=== PATIENT | male | born 1940 | race African-American/Black ===

== ENCOUNTER 2016-02-11 10:51 | Emergency (ER) | payer BC, MEDICARE ==
[~2016-02-11] VITALS: Ht 180.3 cm; Wt 100.0 kg
[~2016-02-11 10:51] MED LIST: COZA25TA PO; GABA100C4 PO; TAMS5CAP PO
[2016-02-11 10:52] VITALS: BP 233/107; PULSE 88; RESP 14; TEMP 97.7; O2SAT 98
[2016-02-11 11:13] VITALS: BP_SYST 192; BP_SYST 242; BP_DIAS 109; BP_DIAS 73
[2016-02-11 11:38] VITALS: O2SAT 97
--- NOTE | 2016-02-11 11:40 | PD ---
HPI Chief Complaint: Hypertension Time Seen by Provider: 11:37 Travel History International Travel<30 days: No Contact w/Intl Traveler<30days: No Traveled to known affect area: No History of Present Illness HPI This 75-year-old male presents to the emergency department for evaluation of elevated blood pressure. Patient was discharged 3 days ago from the Hospital after being admitted for hypertensive urgency. He was registered on a Cardene drip. The cardiac drip was weaned off and the patient was discharged home with increase of his losartan 50 mg daily to 75 mg daily. He states his blood pressure when he woke up this morning was 133/94. He then took his losartan his blood pressure has been climbing since. The patient states he felt slightly dizzy this morning, but denies any headache, chest pain, shortness breath, abdominal pain, vomiting. He states other than having his blood pressure elevated, he feels fine. Patient states he takes losartan and gabapentin at home. PFSH Past Medical History Arthritis: Yes Heart Rhythm Problems: No Cancer: No Cardiovascular Problems: Yes High Cholesterol: No Chest Pain: Yes Congestive Heart Failure: Yes Diminished Hearing: Yes (RIGHT) Endocrine: No Gastrointestinal Disorders: Yes GERD: Yes Genitourinary: Yes Hiatal Hernia: No Hypertension: Yes Immune Disorder: No Musculoskeletal: Yes Neurologic: No Psychiatric: No Reproductive: No Respiratory: No Immunizations Current: Yes Ulcer: No Past Surgical History Abdominal Surgery: No Cardiac Surgery: No Ear Surgery: No Endocrine Surgery: No Eye Surgery: No Genitourinary Surgery: No Gynecologic Surgery: No Neurologic Surgery: Yes (CYST ON POSTERIOR NECK REMOVED) Oral Surgery: No Thoracic Surgery: No Other Surgery: Yes (PROSTATE BIOPSY) Social History Alcohol Use: No Tobacco Use: No Substance Use: No Allergies-Medications (Allergen,Severity, Reaction): Coded Allergies: No Known Allergies (Verified , 02/11/16) Reported Meds & Prescriptions Reported Meds & Active Scripts Active Cozaar (Losartan Potassium) 25 Mg Tab 75 Mg PO DAILY Reported Flomax (Tamsulosin HCl) 0.4 Mg Cap 0.4 Mg PO HS Gabapentin 100 Mg Cap 100 Mg PO TID Review of Systems Except as stated in HPI: all other systems reviewed are Neg Physical Exam Narrative GENERAL: Well-developed well-nourished male patient, ambulatory. Afebrile. SKIN: Warm and dry. HEAD: Normocephalic. Atraumatic. EYES: No scleral icterus. No injection or drainage. NECK: Supple, trachea midline. No JVD or lymphadenopathy. CARDIOVASCULAR: Regular rate and rhythm without murmurs, gallops, or rubs. RESPIRATORY: Breath sounds equal bilaterally. No accessory muscle use. Lungs sounds clear to auscultation. GASTROINTESTINAL: Abdomen soft, non-tender, nondistended. MUSCULOSKELETAL: No cyanosis, or edema. Bilateral upper and lower extremity strength 5/5. All extremities are neurovascularly intact. BACK: Nontender without obvious deformity. No CVA tenderness. Data Data Last Documented VS Vital Signs Date Time Temp Pulse Resp B/P Pulse Ox O2 Delivery O2 Flow Rate FiO2 02/11/16 12:13 97 Room Air 02/11/16 11:13 242/109 192/73 02/11/16 11:07 75 18 02/11/16 10:52 97.7 Orders Electrocardiogram (02/11/16 ) Bilateral Bp Monitoring (02/11/16 11:12) Basic Metabolic Panel (Bmp) (02/11/16 11:35) Ckmb (Isoenzyme) Profile (02/11/16 11:35) Complete Blood Count With Diff (02/11/16 11:35) Magnesium (Mg) (02/11/16 11:35) Troponin I (02/11/16 11:35) Ecg Monitoring (02/11/16 11:35) Bilateral Bp Monitoring (02/11/16 11:35) Iv Access Insert/Monitor (02/11/16 11:35) Oximetry (02/11/16 11:35) Oxygen Administration (02/11/16 11:35) Sodium Chloride 0.9% Flush (Ns Flush) (02/11/16 11:45) Hydralazine Inj (Apresoline Inj) (02/11/16 11:45) Labs Laboratory Tests Test 02/11/16 02/11/16 11:40 12:35 White Blood Count 3.4 TH/MM3 Red Blood Count 4.54 MIL/MM3 Hemoglobin 12.7 GM/DL Hematocrit 38.5 % Mean Corpuscular Volume 84.9 FL Mean Corpuscular Hemoglobin 27.9 PG Mean Corpuscular Hemoglobin 32.9 % Concent Red Cell Distribution Width 15.6 % Platelet Count 147 TH/MM3 Mean Platelet Volume 8.1 FL Neutrophils (%) (Auto) 19.0 % Lymphocytes (%) (Auto) 61.5 % Monocytes (%) (Auto) 15.6 % Eosinophils (%) (Auto) 3.4 % Basophils (%) (Auto) 0.5 % Neutrophils # (Auto) 0.6 TH/MM3 Lymphocytes # (Auto) 2.1 TH/MM3 Monocytes # (Auto) 0.5 TH/MM3 Eosinophils # (Auto) 0.1 TH/MM3 Basophils # (Auto) 0.0 TH/MM3 CBC Comment AUTO DIFF Differential Total Cells 100 Counted Neutrophils % (Manual) 20 % Lymphocytes % 60 % Monocytes % 14 % Eosinophils % 6 % Neutrophils # (Manual) 0.7 TH/MM3 Differential Comment FINAL DIFF MANUAL Platelet Estimate NORMAL Platelet Morphology Comment NORMAL Red Cell Morphology Comment NORMAL Sodium Level 139 MEQ/L Potassium Level 4.0 MEQ/L Chloride Level 107 MEQ/L Carbon Dioxide Level 24.8 MEQ/L Anion Gap 7 MEQ/L Blood Urea Nitrogen 16 MG/DL Creatinine 1.19 MG/DL Estimat Glomerular Filtration 72 ML/MIN Rate Random Glucose 90 MG/DL Calcium Level 8.6 MG/DL Magnesium Level 2.0 MG/DL Total Creatine Kinase 99 U/L Troponin I LESS THAN 0.02 NG/ML MDM Medical Decision Making Medical Screen Exam Complete: Yes Emergency Medical Condition: Yes Medical Record Reviewed: Yes Differential Diagnosis hypertension urgency vs. hypertensive emergency vs. ACS Narrative Course 75-year-old male presents to the emergency department for evaluation of elevated blood pressure. Patient was discharged 3 days ago from the emergency department. Other than high blood pressure, he states he feels fine. CBC, BMP , CK, troponin, magnesium were ordered and pending. EKG shows sinus rhythm, heart rate 83 and looks unchanged since previous EKG. This was read by my attending physician, Dr. Hurt. CBC shows slightly leukopenic and 3.4, which appears chronic for patient. BMP shows no acute abnormalities. CK is 99. Troponin is less than 0.02. Magnesium is 2.0. Patient is instructed to follow up with his primary care physician. He is instructed to return for any acute worsening of symptoms including severe headache, shortness of breath, chest pain or any other emergent condition. Patient is agreeable. Patient is continue increased dose of losartan. Diagnosis Primary Impression: Hypertension Qualified Code: I10 - Essential hypertension Referrals: Primary Care Physician call for appointment Patient Instructions: Chronic Hypertension (ED), General Instructions Additional Instructions: Continue increased dose of Losartan and follow up with your primary care provider. Return to the emergency department for any acute, worsening of symptoms. Med/Other Pt SpecificInfo: No Change to Meds Disposition: 01 DISCHARGE HOME Condition: Stable Kendra Walker Feb 11, 2016 11:40
[2016-02-11] MEDS ORDERED: hydrALAZINE HCL 20 MG/ML VIAL IV PUSH ONE (11:45)
[2016-02-11] MEDS ORDERED: SODIUM CHLORIDE 0.9% FLUSH 5 ML FLUSH IVF PRN (11:45)
[2016-02-11 12:17] LABS: AUTOMATED NEUTROPHIL # 0.6 TH/MM3 (1.8-7.7); BASOPHIL % 0.5 % (0.0-2.0); EOSINOPHIL # 0.1 TH/MM3 (0-0.4); EOSINOPHIL % 3.4 % (0.0-4.0); HEMATOCRIT 38.5 % (39.0-51.0); LYMPH % 61.5 % (9.0-44.0); LYMPHOCYTE # 2.1 TH/MM3 (1.0-4.8); MEAN CELL VOLUME 84.9 FL (80.0-100.0); MEAN CORPUSCULAR HEMOGLOBIN 27.9 PG (27.0-34.0); MEAN CORPUSCULAR HGB CONC 32.9 % (32.0-36.0); MONO % 15.6 % (0.0-8.0); PLATELET COUNT 147 TH/MM3 (150-450); RED BLOOD COUNT 4.54 MIL/MM3 (4.50-5.90); RED CELL DISTRIBUTION WIDTH 15.6 % (11.6-17.2); WHITE BLOOD COUNT 3.4 TH/MM3 (4.0-11.0)
[2016-02-11 12:18] LABS: HEMO FLAGS AUTO DIFF
[2016-02-11 13:01] LABS: EOSINOPHILS 6 % (0-4); NEUTROPHIL # MANUAL DIFF 0.7 TH/MM3 (1.8-7.7); PLATELET ESTIMATE SMEAR NORMAL (NORMAL); PLATELET MORPHOLOGY NORMAL (NORMAL); POLYS (SEG NEUTROPHILS) 20 % (16-70); WBC DIFF SAMPLE 100
[2016-02-11 13:02] LABS: SCAN/DIFF FINAL DIFF MANUAL
[2016-02-11 13:08] LABS: ANION GAP 7 MEQ/L (5-15); BICARBONATE 24.8 MEQ/L (21.0-32.0); BLOOD UREA NITROGEN 16 MG/DL (7-18); CHLORIDE 107 MEQ/L (98-107); GLOMERULAR FILTRATION RATE 72 ML/MIN (>89); SODIUM (NA) 139 MEQ/L (136-145)
[2016-02-11 13:23] LABS: CREATINE KINASE 99 U/L (39-308)
[2016-02-11 13:29] VITALS: BP 168/76; PULSE 86; RESP 18; TEMP 97.7; O2SAT 98
--- NOTE | 2016-02-11 13:31 | PD ---
Data Data Last Documented VS Vital Signs Date Time Temp Pulse Resp B/P Pulse Ox O2 Delivery O2 Flow Rate FiO2 02/11/16 12:13 97 Room Air 02/11/16 11:13 242/109 192/73 02/11/16 11:07 75 18 02/11/16 10:52 97.7 Orders Electrocardiogram (02/11/16 ) Bilateral Bp Monitoring (02/11/16 11:12) Basic Metabolic Panel (Bmp) (02/11/16 11:35) Ckmb (Isoenzyme) Profile (02/11/16 11:35) Complete Blood Count With Diff (02/11/16 11:35) Magnesium (Mg) (02/11/16 11:35) Troponin I (02/11/16 11:35) Ecg Monitoring (02/11/16 11:35) Bilateral Bp Monitoring (02/11/16 11:35) Iv Access Insert/Monitor (02/11/16 11:35) Oximetry (02/11/16 11:35) Oxygen Administration (02/11/16 11:35) Sodium Chloride 0.9% Flush (Ns Flush) (02/11/16 11:45) Hydralazine Inj (Apresoline Inj) (02/11/16 11:45) Labs Laboratory Tests Test 02/11/16 02/11/16 11:40 12:35 White Blood Count 3.4 TH/MM3 Red Blood Count 4.54 MIL/MM3 Hemoglobin 12.7 GM/DL Hematocrit 38.5 % Mean Corpuscular Volume 84.9 FL Mean Corpuscular Hemoglobin 27.9 PG Mean Corpuscular Hemoglobin 32.9 % Concent Red Cell Distribution Width 15.6 % Platelet Count 147 TH/MM3 Mean Platelet Volume 8.1 FL Neutrophils (%) (Auto) 19.0 % Lymphocytes (%) (Auto) 61.5 % Monocytes (%) (Auto) 15.6 % Eosinophils (%) (Auto) 3.4 % Basophils (%) (Auto) 0.5 % Neutrophils # (Auto) 0.6 TH/MM3 Lymphocytes # (Auto) 2.1 TH/MM3 Monocytes # (Auto) 0.5 TH/MM3 Eosinophils # (Auto) 0.1 TH/MM3 Basophils # (Auto) 0.0 TH/MM3 CBC Comment AUTO DIFF Differential Total Cells 100 Counted Neutrophils % (Manual) 20 % Lymphocytes % 60 % Monocytes % 14 % Eosinophils % 6 % Neutrophils # (Manual) 0.7 TH/MM3 Differential Comment FINAL DIFF MANUAL Platelet Estimate NORMAL Platelet Morphology Comment NORMAL Red Cell Morphology Comment NORMAL Sodium Level 139 MEQ/L Potassium Level 4.0 MEQ/L Chloride Level 107 MEQ/L Carbon Dioxide Level 24.8 MEQ/L Anion Gap 7 MEQ/L Blood Urea Nitrogen 16 MG/DL Creatinine 1.19 MG/DL Estimat Glomerular Filtration 72 ML/MIN Rate Random Glucose 90 MG/DL Calcium Level 8.6 MG/DL Magnesium Level 2.0 MG/DL Total Creatine Kinase 99 U/L Troponin I LESS THAN 0.02 NG/ML MDM Supervised Visit with [facility]: Yes Narrative Course The history, exam, and medical decision-making in the associated mid-level provider note were completed with my assistance. I reviewed and agree with the findings presented. I attest that I had a [id number] encounter with the patient on the same day, and personally performed and documented my assessment and findings in the medical record. *My assessment and Findings: 75-year-old man who presents emergent department concerned about ongoing elevated blood pressure. Looks well. No evidence of ischemia. Recommend continue new increased dose of losartan his previously recommended, outpatient follow-up. Diagnosis Primary Impression: Hypertension Hipolito Hurt MD Feb 11, 2016 13:31
--- NOTE | 2016-02-11 18:26 | EKG ---
Date Performed: 02/11/2016 Time Performed: 11:11:18 PTAGE: 75 years EKG: Sinus rhythm MODERATE VOLTAGE CRITERIA FOR LVH, CONSIDER NORMAL VARIANT POSSIBLE SEPTAL MYOCARDIAL INFARCTION Sin ce previous tracing, no significant change noted ABNORMAL ECG PREVIOUS TRACING : 02/07/2016 04.17 DOCTOR: Ana Spann Interpretating Date/Time 02/11/2016 18:24:45
== END 2016-02-11 14:13 | disposition home or self-care (01) ==
LOC: NEPE 10:51
DX: I10 Essential (primary) hypertension (principal); R94.31 Abnormal electrocardiogram [ECG] [EKG]; I50.9 Heart failure, unspecified
CPT/HCPCS: 80048; 82550; 83735; 84484; 85007; 85027; 93005; 96374; 99283; J0360

== ENCOUNTER 2016-03-26 07:11 | Emergency (ER) | payer BC, MEDICARE ==
[~2016-03-26] VITALS: Ht 180.3 cm; Wt 95.0 kg
[2016-03-26 07:14] VITALS: BP 215/101; PULSE 81; RESP 18; TEMP 98; O2SAT 99
--- NOTE | 2016-03-26 09:53 | PD ---
HPI Chief Complaint: Hypertension Time Seen by Provider: 09:36 Travel History International Travel<30 days: No Contact w/Intl Traveler<30days: No Traveled to known affect area: No History of Present Illness HPI Patient seen in triage. 76-year-old male with a history of hypertension who presents to the emergency department his blood pressure was high this morning, 200s over 80s. He takes losartan 100 mg, clonidine 0.2 mg, and HCTZ 12.5 mg. He states he was having some pain and pressure in his neck into him to the emergency department today. He states he was told if he had these symptoms to come to the emergency department. He is been here before for the same. He states he gets burning pressure in his neck pretty much daily. No shortness of breath. No chest pain. Do not take his medications this morning because he was coming up to the emergency department. History Past Medical History Narrative Medical Hypertension Prostate CA Social History Alcohol Use: No Tobacco Use: No Allergies-Medications (Allergen,Severity, Reaction): Coded Allergies: No Known Allergies (Verified , 02/11/16) Reported Meds & Prescriptions Reported Meds & Active Scripts Active Cozaar (Losartan Potassium) 25 Mg Tab 75 Mg PO DAILY Reported Flomax (Tamsulosin HCl) 0.4 Mg Cap 0.4 Mg PO HS Gabapentin 100 Mg Cap 100 Mg PO TID Review of Systems Except as stated in HPI: all other systems reviewed are Neg Physical Exam Narrative GENERAL: Well-appearing 76-year-old man, no acute distress. SKIN: Warm and dry. CARDIOVASCULAR: Regular rate and rhythm. No murmur appreciated. RESPIRATORY: No accessory muscle use. Clear to auscultation. Breath sounds equal bilaterally. GASTROINTESTINAL: Abdomen soft, non-tender, nondistended. Hepatic and splenic margins not palpable. MUSCULOSKELETAL: No obvious deformities. No clubbing. No cyanosis. No edema. NEUROLOGICAL: Awake and alert. No obvious cranial nerve deficits. Motor grossly within normal limits. Normal speech. PSYCHIATRIC: Appropriate mood and affect; insight and judgment normal. Data Data Last Documented VS Vital Signs Date Time Temp Pulse Resp B/P Pulse Ox O2 Delivery O2 Flow Rate FiO2 03/26/16 07:14 98.0 81 18 215/101 99 Room Air Orders Electrocardiogram (03/26/16 ) MDM Medical Decision Making Medical Screen Exam Complete: Yes Emergency Medical Condition: Yes Interpretation(s) My review of EKG: Normal sinus rhythm a rate of 71, leftward axis, normal intervals, probable LVH, no definite evidence of acute ischemia. Differential Diagnosis Hypertension, hypertensive crisis, dissection, ACS, other Narrative Course Medical decision making 76-year-old male presents emergency Department with what seems to be asymptomatic hypertension. He had his neck and shoulder pain but it sounds like he has is pretty much every day. There is no symptoms of ischemia. He is on blood pressure medications. I recommended he continue his blood pressure log , follow up with his primary physician. Diagnosis Primary Impression: Hypertension Additional Instructions: Continue current medications. Follow-up with her primary doctor in the next 2-3 days. Continue to keep a log your blood pressure and take it with you to follow-up with her primary physician. Return to the emergency department for any chest pain, trouble breathing, or any other new or worsening symptoms. Disposition: 01 DISCHARGE HOME Condition: Stable Hipolito Hurt MD Mar 26, 2016 09:53
--- NOTE | 2016-03-26 22:40 | EKG ---
Date Performed: 03/26/2016 Time Performed: 09:40:26 PTAGE: 76 years EKG: Sinus rhythm POSSIBLE LEFT ATRIAL ENLARGEMENT POSSIBLE LEFT VENTRICULAR HYPERTROPHY POSSIBLE SEPTAL MYOCARDIAL IN FARCTION ABNORMAL ECG PREVIOUS TRACING : 02/11/2016 11.11 DOCTOR: Dana Levy Interpretating Date/Time 03/26/2016 22:39:56
== END 2016-03-26 16:13 | disposition home or self-care (01) ==
LOC: NETRI 07:11
DX: I10 Essential (primary) hypertension (principal); R94.31 Abnormal electrocardiogram [ECG] [EKG]; Z85.46 Personal history of malignant neoplasm of prostate
CPT/HCPCS: 93005